=== PATIENT | female | born 1995 | race Caucasian/White ===

== ENCOUNTER 2017-02-06 20:26 | Emergency (ER) | payer OTHER ==
[~2017-02-06] VITALS: Ht 165.1 cm; Wt 55.2 kg
[2017-02-06 20:43] VITALS: TEMP 37; Ht 165.1 cm; Wt 55.2 kg
[2017-02-06] MEDS ORDERED: BCPILLS PO (21:43)
[2017-02-06] MEDS ORDERED: PSEU30TA64 PO (21:43)
--- NOTE | 2017-02-06 21:50 | EMERGENCY ROOM VISIT NOTE ---
History Report prepared by Ernie: Tre Dhillon Under the Supervision of: Dr. Alvin Goldstein M.D. First contact with patient: 20:54 Chief Complaint: LEG PAIN,LEG INJURY Stated Complaint: NUMB SKIN, RAISED VEIN, BEHIND History of Present Illness The patient is a 21 year old white female with a no past medical history who presents to the ED with a cc of constant right lower leg numbness and tingling beginning this morning. The patient states that this morning, her right reid began to go numb and tingle to the touch. She reports that later this evening, she noticed a vein on the medial aspect of her lower thigh. The patient notes that yesterday her whole body was achy with a sorethroat and rhinorrhea. She states that she experienced 'reid splits' in both of her legs yesterday, but her discomfort went away. The patient reports that she drove here from [place] the other day as a passenger. She notes that she does sit on her legs and the floor a lot. The patient states that she occasionally consumes alcohol. She denies recent injury, weakness, history of blood clots in the lungs and legs, SOB, chest pain, fevers, chills, abdominal pain, dental pain, and tobacco use. Source of History: patient Onset: this morning Position: leg (right lower) Quality: numbness, other (tingling) Timing: constant Associated Symptoms: + sorethroat, No fevers, No chills, No chest pain, No SOB, No abdominal pain, No weakness Note: Associated symptoms: noticeable vein, rhinorrhea Denies: recent injury, history of blood clots in the lungs and legs, dental pain , and tobacco use. Review of Systems See HPI for pertinent positives and negatives. A total of ten systems were reviewed and were otherwise negative. Past Medical & Surgical The patient states she has no know past medical history. Family History Patient reports no known family medical history. Social History Smoking Status: Never Smoker Smokeless Tobacco Use: No Alcohol Use: occasionally Occupation Status: [employer] student Current/Historical Medications Scheduled Control Pills ( Control Pills), 1 TAB PO DAILY Scheduled PRN Pseudoephedrine Hcl (Sudafed), 30 MG PO UD PRN for Nasal/Sinus Congestion Allergies Coded Allergies: No Known Allergies (Unverified , 02/06/17) Physical Exam Vital Signs Date Time Temp Pulse Resp B/P (MAP) Pulse Ox O2 Delivery O2 Flow Rate FiO2 02/06/17 22:28 72 18 119/74 97 02/06/17 20:43 37.0 76 18 138/76 95 Room Air Physical Exam GENERAL: Awake, alert, well-appearing, NAD HENT: Normocephalic, atraumatic. Posterior pharynx had small palpable petechiae , no posterior swelling or exudate. EYES: Normal conjunctiva. Sclera non-icteric. NECK: Supple. No nuchal rigidity. FROM. No stridulous over the neck. RESPIRATORY: CTAB, no rhonchi, wheezing, crackles CARDIAC: RRR, no MRG ABDOMEN: Soft, NTND, BS+ MSK: No chest wall TTP, no LE edema RLE: Very mild left medial thigh pain, no palpable cord. Does complain of some decreased sensation over the right medial reid. NEURO: GCS 15, CN 2-12 intact, moves all 4s on command. Pt can feel pressure, SP -DP-TIB nerves intact. 5/5 strength in the Bilat LE. SKIN: No rash or jaundice noted. Medical Decision & Procedures ER Provider Diagnostic Interpretation: Radiology results as stated below per my review and radiologist interpretation: RIGHT LOWER EXTREMITY VENOUS DOPPLER CLINICAL HISTORY: RLE posterior knee pain, recent car travel, OCP use COMPARISON STUDY: No previous studies for comparison. TECHNIQUE: Sonography of the deep venous system of the right lower extremity was performed. Compression and augmentation were evaluated. FINDINGS: The common femoral, superficial femoral and popliteal veins were compressible. Augmentation was normal. Flow was shown within the deep calf vessels. IMPRESSION: No evidence of deep venous thrombus within the right lower extremity. Electronically signed by: Javad Quevedo M.D. 02/06/2017 10:02 PM Dictated Date/Time: 02/06/2017 10:01 PM ED Course 2: The patient was evaluated in room C02B. A complete history and physical exam was performed. 3: I reevaluated the patient. Discussed results and discharge instructions: she verbalized understanding and agreement. The patient is ready for discharge. Medical Decision The patient is a 21 year old white female with a no past medical history who presents to the ED with a cc of constant right lower leg numbness and tingling beginning this morning. Differential diagnosis includes: DVT, Anthony cyst, nerve compression, MS pain, strain. Patient was evaluated at the bedside. Patient did complain of some decreased sensation over the medial reid of the right lower extremity. Patient now palpable cord not concerning for thrombophlebitis. Patient did not have any difficulty with flexing or extending the knee. Patient may have had some mild decreased sensation however she had no other deficit was concerning for any sort of upper motor neuron allergy. Patient apparently this across leg for the office and was told this may be due to nerve compression. Patient did have a DVT ultrasound that was completed given her recent car trip and history of OCPs with the complaint of possible right lower extremity pain. Patient did not have any evidence of cellulitis. Patient had a negative DVT ultrasound. Patient also did complain of some mild URI symptoms which she was told she should continue some supportive care at home. Patient was given strict follow- up discharge, return precautions. Patient agreed with plan of care and patient was discharged home. Impression Primary Impression: Leg pain, right Scribe Attestation The scribe's documentation has been prepared under my direction and personally reviewed by me in its entirety. I confirm that the note above accurately reflects all work, treatment, procedures, and medical decision making performed by me. Departure Information Dispostion Home / Self-Care Referrals [facility] Forms HOME CARE DOCUMENTATION FORM, IMPORTANT VISIT INFORMATION Patient Instructions ED Muscle Pain Leg Cramps, ED Upper Resp Infec No Abx Tx, My [facility], Stretches Flexion Leg Muscle Additional Instructions Please return to the emergency department if you have worsening or recurrent symptoms not amenable to at-home treatment. Please call for a follow-up appointment with her primary care physician. Please take your medications as prescribed. If you have other concerns and/or complaints please feel free to also call your primary care physician's office or return the ED for further evaluation, management, and treatment. You may take 800 mg Motrin or ibuprofen every 6 hours for maximum 3200 mg every 24 hours. Please take with food and do not take more than 2 consecutive days. He may take 1000 mg of Tylenol every 6 hours and 4000 mg in a 24-hour period.
--- NOTE | 2017-02-06 22:03 | DIAGNOSTIC IMAGING REPORT ---
RIGHT LOWER EXTREMITY VENOUS DOPPLER CLINICAL HISTORY: RLE posterior knee pain, recent car travel, OCP use COMPARISON STUDY: No previous studies for comparison. TECHNIQUE: Sonography of the deep venous system of the right lower extremity was performed. Compression and augmentation were evaluated. FINDINGS: The common femoral, superficial femoral and popliteal veins were compressible. Augmentation was normal. Flow was shown within the deep calf vessels. IMPRESSION: No evidence of deep venous thrombus within the right lower extremity. Electronically signed by: Javad Quevedo M.D. 02/06/2017 10:02 PM Dictated Date/Time: 02/06/2017 10:01 PM
[2017-02-06 22:28] VITALS: BP 119/74; PULSE 72; O2SAT 97
== END 2017-02-06 22:29 | disposition home or self-care (01) ==
LOC: C.EDB 20:28 → C.EDC 22:29
DX: M79.604 Pain in right leg (principal); J02.9 Acute pharyngitis, unspecified; J34.89 Other specified disorders of nose and nasal sinuses; Z79.3 Long term (current) use of hormonal contraceptives